=== PATIENT | male | born 1930 | race Asian ===

== ENCOUNTER 2017-08-24 09:44 | Inpatient (IN) | payer OTHER ==
[~2017-08-24] VITALS: Ht 175.3 cm; Wt 64.0 kg
[~2017-08-24 09:44] MED LIST: CLOP75TA PO; GLU500 PO; LEVO0.0523 PO; TAMS0.4C96 PO
[2017-08-24 10:00] VITALS: BP 70/38
--- NOTE | 2017-08-24 10:15 | NUR ---
PT. BIB BY SON W/ C/O OF DIZZINESS THIS MORNING WHILE HAVING BREAKFAST. SON STATES" I WAS GIVING HIM BREAKFAST AND HE THREW IT UP AND HE WAS DIZZY". NO C/O OF COUGH OR DIAHRRHEA AT THIS TIME. PT. HAS 2/10 PAIN. LS: CLEAR BILATERALLY, RR EVEN AND UNLABORED. E.R DOCTOR NOTIFIED. WILL CONTINUE TO MONITOR
[2017-08-24] MEDS ORDERED: NACL 0.9% 1,000 ML IV SCH (10:26)
--- NOTE | 2017-08-24 10:42 | NUR ---
# 16 FR Spears catheter with 10 ml utilizing sterile technique. Immediate return of 10 ml yellowish urine noted. Bedside drainage bag placed below level of bladder. Urine sample collected and sent to lab. Pt tolerated procedure well.
--- NOTE | 2017-08-24 10:55 | NUR ---
HEAVY ARTIFACT NOTED ON EKG---ST ELEVATION SR MD NOTIFIED PT DOES NOT TO BE TREMULOUS BUT RUE CONTRACTION. TROP LEVEL COLLECTED
--- NOTE | 2017-08-24 11:15 | NUR ---
X RAY AT BEDSIDE
--- NOTE | 2017-08-24 11:15 | NUR ---
LAB AT BEDSIDE
[2017-08-24 11:28] LABS: HEMATOCRIT 36.1 % (36-52); HEMOGLOBIN 11.9 g/dL (12.0-18.0); LYMPHOCYTES # (AUTO) 0.4 K/uL (2.0-11.5); LYMPHOCYTES % (AUTO) 3.4 % (20.5-51.1); MEAN CORPUSCULAR HEMOGLOBIN 33 pg (27-31); MEAN CORPUSCULAR HGB CONC 33 g/dL (33-37); MEAN CORPUSCULAR VOLUME 99.4 fL (80-94); MONOCYTES # (AUTO) 0.7 K/uL (0.8-1.0); MONOCYTES % (AUTO) 6.4 % (1.7-9.3); NEUTROPHILS # (AUTO) 10.1 K/uL (1.8-7.7); NEUTROPHILS % (AUTO) 90.2 % (42.2-75.2); PLATELET COUNT (AUTO) 139 K/uL (140-450); RED BLOOD CELL COUNT(AUTO) 3.63 MIL/uL (4.20-6.10); RED CELL DISTRIBUTION WIDTH 13.2 % (11.6-13.7); WHITE BLOOD COUNT (AUTO) 11.2 K/uL (4.8-10.8)
[2017-08-24 11:42] LABS: ALBUMIN 2.7 g/dL (3.4-5.0); ANION GAP 16.2 (8-16); ASPARTATE AMINOTRANSFERASE 120 U/L (15-37); CARBON DIOXIDE 21.2 mmol/L (21-32); CHLORIDE 102 mmol/L (98-107); CREATININE 1.6 mg/dL (0.7-1.3); GLUCOSE 146 mg/dL (74-106); POTASSIUM 5.4 mmol/L (3.5-5.1); SODIUM SERUM 134 mmol/L (136-145); TOTAL BILIRUBIN 0.7 mg/dL (0.0-1.0); UREA NITROGEN, BLOOD 35 mg/dL (7-18)
[2017-08-24 12:12] LABS: APPEARANCE,URINE CLEAR (CLEAR); BILIRUBIN,URINE NEGATIVE (NEGATIVE); BLOOD, URINE 1+ (NEGATIVE); COLOR,URINE YELLOW (YELLOW); LEUKOCYTE ESTERASE ,URINE 3+ (NEGATIVE); NITRITE, URINE POSITIVE (NEGATIVE); PH,URINE 5.5 (5.0-9.0); UGLUCOSE NEGATIVE (NEGATIVE)
[2017-08-24] MEDS ORDERED: NACL 0.9% 1,000 ML IV ONE (12:15)
[2017-08-24 12:24] LABS: RBC,URINE 0-5 (RARE) /HPF (0-5)
[2017-08-24 12:25] LABS: WBC,URINE 20-60 /HPF (0-5)
--- NOTE | 2017-08-24 12:35 | NUR ---
PT. SLEEPING, RR EVEN AND UNLABORED, BED IN LOWEST POSITION, BEDRAILS X 2. SON AT BEDSIDE. WILL CONTINUE TO MONITOR.
[2017-08-24] MEDS ORDERED: cefTRIAXone 1,000 MG VIAL ONE (13:07)
[2017-08-24] MEDS ORDERED: NACL 0.9% 500 ML IV ONE (13:30)
[2017-08-24] MEDS ORDERED: ACETAMINOPHEN 325 MG TAB PO PRN (14:10)
[2017-08-24] MEDS ORDERED: HYDROcodone/APAP 7.5/325 MG 1 TAB PO PRN (14:10)
[2017-08-24] MEDS ORDERED: ONDANSETRON 4 MG/2 ML VIAL IM/IVP PRN (14:10)
[2017-08-24] MEDS ORDERED: DOCUSATE SODIUM 100 MG GELCAP PO PRN (14:10)
--- NOTE | 2017-08-24 14:19 | NUR ---
LAB AT BEDSIDE
[2017-08-24] MEDS ORDERED: SODIUM POLYSTYRENE 15 GM/60 ML UDBTL PO SCH (14:50)
[2017-08-24] MEDS ORDERED: MECLIZINE 25 MG TAB PO ONE (15:00)
[2017-08-24] MEDS ORDERED: MECLIZINE 25 MG TAB PO PRN (15:10)
--- NOTE | 2017-08-24 15:14 | NUR ---
PT TAKEN TO CT VIA GURIATLIA ACCOMPANIED BY [employer].
--- NOTE | 2017-08-24 15:23 | NUR ---
PT RETURNED FROM CT VIA RNEY ACCOMPANIED BY [employer].
[2017-08-24 15:40] LABS: CHOL/HDL RATIO 2.4 (1-4.5); FREE T4 (FREE THYROXINE) 1.02 ng/dL (0.76-1.46); MAGNESIUM 1.9 mg/dL (1.8-2.4); PHOSPHORUS 3.6 mg/dL (2.5-4.9); THYROID STIMULATING HORMONE 1.61 uIU/mL (0.34-3.74)
--- NOTE | 2017-08-24 15:40 | NUR ---
Patient will be admitted to care of DR. FONSECA . Admited to TELE FLOOR Will go to room 108B. Belongings list completed. Report to [facility] .
[2017-08-24] MEDS ORDERED: DEXTROSE 50% 50 ML SYR IVP PRN (16:35)
--- NOTE | 2017-08-24 16:40 | NUR ---
PATIENT ARRIVED AT THE UNIT. RECEIVED BEDSIDE REPORT FROM ER NURSE. SON AT BEDSIDE. NO S/SX OF DISTRESS ON ROOM AIR. ALERT AND ORIENTEDX2. SKIN IS INTACT. IV ON LAC 20G. IV IS CLEAN, DRY AND INTACT. CHICAS INSERTED IN ER. CHICAS IS INTACT. AIRLINE TRANSPORT PILOT IN PLACE. FALL PRECAUTIONS IN PLACE. NPO UNTIL SWALLOW EVAL DONE. BED IN LOW POSITION. CALL LIGHT WITHIN REACH. WILL CONTINUE TO MONITOR PATIENT.
[2017-08-24] MEDS: NACL 0.9% 1,000 ML IV SCH ×2 (16:46→23:43)
[2017-08-24] MEDS: BLOOD GLUCOSE MONITORING 1 DEV DEV FS SCH (16:59)
--- NOTE | 2017-08-24 17:03 | NUR ---
HELD PRN INSULIN DUE TO NPO FOR SWALLOW EVALUATION.
--- NOTE | 2017-08-24 19:30 | NUR ---
GAVE BEDSIDE REPORT TO NETWORK SOLUTIONS ARCHITECT NURSE. PATIENT ENDORSED IN STABLE CONDITION.
--- NOTE | 2017-08-24 19:35 | NUR ---
RECEIVED REPORT FROM DAY SHIFT RN, PATIENT RESTING IN BED, SON IS AT BEDSIDE, NO S/S OF DISTRESS NOTED, PATIENT IS NON-VERBAL, IV PATENT AND INTACT, IV FLUID INFUSING WELL. RIGHT ARM CONTRACTED. CHICAS IN PLACE, DRAINING URINE BY GRAVITY. CALL LIGHT WITHIN REACH, SAFETY MEASURE ENSURED, WILL CONTINUE TO MONITOR.
[2017-08-24 20:00] VITALS: BP 91/50
[2017-08-24] MEDS ORDERED: CLOPIDOGREL 75 MG TAB PO SCH (20:05)
[2017-08-24] MEDS ORDERED: ASPIRIN 325 MG TAB ONE (20:19)
[2017-08-24] MEDS ORDERED: CLOPIDOGREL 75 MG TAB ONE (20:20)
[2017-08-24] MEDS ORDERED: ASPIRIN 325 MG TABEC PO ONE (20:29)
[2017-08-24] MEDS: TAMSULOSIN 0.4 MG CAP PO SCH (20:35)
--- NOTE | 2017-08-24 20:40 | NUR ---
DR. ELIZABETH ORDERED ASPIRIN ENTERIC COATED TABLET 325 MG AND PLAVIX 75MG PO, MEDICATIONS ADMINISTERED ORDERED, PATIENT TOLERATED WELL. BLOOD SUGAR 102, GLUCOPHAGE HELD DUE TO NPO. CALL LIGHT WITHIN REACH, SAFETY MEASURE ENSURED, WILL CONTINUE TO MONITOR.
[2017-08-24] MEDS ORDERED: metFORMIN 500 MG TAB PO SCH (21:00)
[2017-08-24] MEDS: ASPIRIN 325 MG TABEC PO SCH (21:03)
--- NOTE | 2017-08-24 23:55 | NUR ---
VITAL SIGNS STABLE, NO S/S OF DISTRESS NOTED, RESPIRATION EVEN AND UNLABORED, ON ROOM AIR. CALL LIGHT WITHIN REACH, SAFETY MEASURE ENSURED, WILL CONTINUE TO MONITOR.
[2017-08-25] VITALS: BP 104/59
--- NOTE | 2017-08-25 02:53 | NUR ---
PATIENT IS SLEEPING, NO S/S OF DISTRESS NOTED, RESPIRATION EVEN AND UNLABORED, CALL LIGHT WITHIN REACH, SAFETY MEASURE ENSURED, WILL CONTINUE TO MONITOR.
[2017-08-25 04:00] VITALS: BP 99/58
[2017-08-25] MEDS: LEVOTHYROXINE 0.05 MG TAB PO SCH (05:46)
--- NOTE | 2017-08-25 05:50 | NUR ---
BLOOD SUGAR 58 AND 63, MADE DR. ELIZABETH AWARE. ORDERED ME TO GIVE APPLE JUICE FOR NOW. PATIENT DRANK ONE BOX OF APPLE JUICE, TOLERATED WELL. WILL CONTINUE TO MONITOR.
--- NOTE | 2017-08-25 06:31 | NUR ---
BLOOD SUGAR 89. PATIENT RESTING IN BED, NO S/S OF DISTRESS NOTED, WILL CONTINUE TO MONITOR.
[2017-08-25] MEDS: BLOOD GLUCOSE MONITORING 1 DEV DEV FS SCH ×4 (06:32→21:54)
--- NOTE | 2017-08-25 07:17 | NUR ---
ENDORSED PLAN OF CARE TO DAY SHIFT RN. PATIENT IS IN STABLE CONDITION.
[2017-08-25 07:18] LABS: BASOPHILS % (AUTO) 0.2 % (0.0-2.0); EOSINOPHILS # (AUTO) 0.4 K/uL (0-0.4); EOSINOPHILS % (AUTO) 3.7 % (0.0-4.0); HEMATOCRIT 31.4 % (36-52); HEMOGLOBIN 10.8 g/dL (12.0-18.0); LYMPHOCYTES # (AUTO) 0.7 K/uL (2.0-11.5); LYMPHOCYTES % (AUTO) 6.7 % (20.5-51.1); MEAN CORPUSCULAR HEMOGLOBIN 34 pg (27-31); MEAN CORPUSCULAR HGB CONC 34 g/dL (33-37); MEAN CORPUSCULAR VOLUME 98.4 fL (80-94); MONOCYTES # (AUTO) 0.5 K/uL (0.8-1.0); MONOCYTES % (AUTO) 5.3 % (1.7-9.3); NEUTROPHILS # (AUTO) 8.3 K/uL (1.8-7.7); NEUTROPHILS % (AUTO) 84.1 % (42.2-75.2); PLATELET COUNT (AUTO) 121 K/uL (140-450); RED BLOOD CELL COUNT(AUTO) 3.19 MIL/uL (4.20-6.10); RED CELL DISTRIBUTION WIDTH 13.4 % (11.6-13.7); WHITE BLOOD COUNT (AUTO) 9.9 K/uL (4.8-10.8)
--- NOTE | 2017-08-25 07:20 | NUR ---
RECEIVED REPORT FROM DIRECTOR EMERGENCY DEPARTMENT NURSE. PATIENT SLEEPING AT THIS TIME. EASILY AROUSABLE. NO S/SX OF DISTRESS ON ROOM AIR. SKIN IS INTACT. IV IN L AC 20G INFUSING NS AT 100ML. IV IS INTACT. TOW MOTOR OPERATOR IN PLACE. FALL RISK PROTOCOL IN PLACE. CHICAS IN PLACE. BED IN LOW POSITION. WILL CONTINUE TO MONITOR PATIENT.
[2017-08-25 07:27] LABS: ANION GAP 13.3 (8-16); CARBON DIOXIDE 20.8 mmol/L (21-32); CHLORIDE 107 mmol/L (98-107); CREATININE 1.3 mg/dL (0.7-1.3); GLUCOSE 71 mg/dL (74-106); POTASSIUM 4.1 mmol/L (3.5-5.1); SODIUM SERUM 137 mmol/L (136-145); UREA NITROGEN, BLOOD 28 mg/dL (7-18)
[2017-08-25 07:39] LABS: MAGNESIUM 1.8 mg/dL (1.8-2.4); PHOSPHORUS 2.7 mg/dL (2.5-4.9)
[2017-08-25 08:00] VITALS: BP 104/49
[2017-08-25] MEDS ORDERED: NACL 0.9% 1,000 ML IV SCH (08:05)
--- NOTE | 2017-08-25 08:19 | NUR ---
ADMINISTERING 1L NS BOLUS ORDERED BY THE DOCTOR. PATIENT TOLERATING BOLUS WELL. THERE IS AN IMPROVEMENT IN B/P. BED IN LOW POSITION. WILL CONTINUE TO MONITOR PATIENT.
[2017-08-25 08:23] LABS: FOLIC ACID 4.3 ng/mL (>3.0)
[2017-08-25] MEDS ORDERED: PHARMACY COMMENTS MC SCH (09:00)
[2017-08-25] MEDS ORDERED: ASPIRIN 81 MG TAB.CHEW PO ONE (09:00)
[2017-08-25 09:09] LABS: T4 (THYROXINE) 6.2 ug/dL (4.5-12.0)
[2017-08-25] MEDS: CLOPIDOGREL 75 MG TAB PO SCH (09:28)
[2017-08-25] MEDS: ASPIRIN 325 MG TABEC PO SCH (09:28)
[2017-08-25] MEDS: LACTOBACILLUS RHAMNOSUS GG 1 EACH CAP PO SCH (09:28)
[2017-08-25] MEDS: ATORVASTATIN 20 MG TAB PO SCH (09:29)
--- NOTE | 2017-08-25 09:30 | NUR ---
SON AT BEDSIDE. ADMINISTERED MORNING MEDS WITH THICKENER. PATIENT TOLERATED MEDS WELL, NO COMPLAINTS AT THIS TIME. PLACED SCDS ON PATIENT. BED IN LOW POSITION, WILL CONTINUE TO MONITOR PATIENT.
[2017-08-25] MEDS: NACL 0.9% 1,000 ML IV SCH ×2 (10:10→22:00)
--- NOTE | 2017-08-25 11:27 | NUR ---
PATIENT CURRENTLY SLEEPING WITH NO S/SX OF DISTRESS. BED IN LOW POSITION. WILL CONTINUE TO MONITOR PATIENT.
--- NOTE | 2017-08-25 11:43 | NUR ---
CM NOTE INITIAL REVIEW DONE
[2017-08-25 12:00] VITALS: BP 124/69
--- NOTE | 2017-08-25 13:24 | NUR ---
SPEECH THERAPIST AT BEDSIDE DOING SWALLOW EVAL. PATIENT TOLERATING WELL. WILL RECHECK BLOOD GLUCOSE AFTER THE EXAM. WILL CONTINUE TO MONITOR PATIENT.
--- NOTE | 2017-08-25 13:43 | NUR ---
COLLECTION CARD CLERK note (Bedside swallow evaluation completed) [id number]. Bedside swallow evaluation completed, please see report for details. COLLECTION CARD CLERK provided pt with education regarding purpose of evaluation. Unclear how much pt benefitted from education provided. No family present at this time. Recommend: 1) mechanical soft textures 2) thin liquids 3) aspiration precautions (including pt must be fully awake/alert/upright for any PO intakes, alternate small/slow bites and sips, stop giving PO if pt becomes less alert/SOB/coughing) 4) feeding assistance 5) no further COLLECTION CARD CLERK intervention indicated at this time. Physician may reorder if further concerns arise, as appropriate. G-codes: [id number] [facility] NOMS level 4.
--- NOTE | 2017-08-25 13:45 | NUR ---
PATIENT GLUCOSE LEVEL UP TO 84 AFTER SWALLOW EVALUATION. WILL CONTINUE TO MONITOR PATIENT.
[2017-08-25 14:10] LABS: APPEARANCE,URINE CLEAR (CLEAR); BILIRUBIN,URINE NEGATIVE (NEGATIVE); BLOOD, URINE 3+ (NEGATIVE); LEUKOCYTE ESTERASE ,URINE 2+ (NEGATIVE); NITRITE, URINE NEGATIVE (NEGATIVE); UGLUCOSE NEGATIVE (NEGATIVE)
[2017-08-25 14:17] LABS: COLOR,URINE STRAW (YELLOW)
[2017-08-25 14:22] LABS: WBC,URINE 6-15 (FEW) /HPF (0-5)
[2017-08-25 14:23] LABS: RBC,URINE 20-50 /HPF (0-5)
--- NOTE | 2017-08-25 14:51 | NUR ---
PATIENT IS SLEEPING. NO SIGNS OF DISTRESS. BED IN LOW POSITION. WILL CONTINUE TO MONITOR PATIENT.
--- NOTE | 2017-08-25 14:59 | NUR ---
PATIENT HAS BEEN SCREENED AND CATEGORIZED HIGH NUTRITION RISK. PATIENT WILL BE SEEN WITHIN 1-2 DAYS OF ADMISSION. 08/25/17 - 08/26/[address]
[2017-08-25 16:00] VITALS: BP 98/70
--- NOTE | 2017-08-25 16:30 | NUR ---
PATIENT IS SLEEPING NO SIGNS OF DISTRESS AT THIS TIME. BED IN LOW POSITION. WILL CONTINUE TO MONITOR PATIENT.
--- NOTE | 2017-08-25 17:50 | NUR ---
NEW IV ON L FOREARM 22G. IV IS CLEAN, DRY AND INTACT. PATIENT TOLERATED WELL. SON AT BEDSIDE FEEDING PATIENT. BED IN LOW POSITION. CALL LIGHT WITHIN REACH. WILL CONTINUE TO MONITOR PATIENT.
--- NOTE | 2017-08-25 19:44 | NUR ---
GAVE NET WPF DEVELOPER NURSE REPORT. PATIENT IS IN STABLE CONDITION.
--- NOTE | 2017-08-25 19:45 | NUR ---
RECEIVED PT BEKA SONT AOX1 FOLLOW SIMPLAE COMMANDS RT SIDE BODYCONTRACTED IV ON LEFT FA INFUSING WELL ON TELEMETRY SR , FOLEYCATHDRAINING WELL YELLOW URINE, REPOSITIONED INITIAL ASSESSMENT DONE RELATIVES AT BED SIDE
[2017-08-25 20:00] VITALS: BP 89/50
--- NOTE | 2017-08-25 21:30 | NUR ---
BLOOD SUGAR TEST 153 COVERAGE WITH 2UNITS HUMALOG SUBQ FOLLOWING PROTOCOL PT REMAIN STBLE AT THIS;TIME NOT SIGN OF PAIN NOTED
[2017-08-25] MEDS: INSULIN LISPRO SLIDING SCALE 100 UNITS/ML VIAL SUBQ PRN (21:50)
[2017-08-25] MEDS: TAMSULOSIN 0.4 MG CAP PO SCH (21:55)
[2017-08-26] VITALS: BP 100/68
--- NOTE | 2017-08-26 | NUR ---
ON TELE SR NOT DISTRESS NOTED ON TELEMETRY SR BBB REPOSITIONED Q2H
--- NOTE | 2017-08-26 02:00 | NUR ---
REPOSITIONED Q2H LINEN CHANGED ON TELEMETRY SR NOT DISTRESS NOTED
[2017-08-26 04:00] VITALS: BP 116/58
--- NOTE | 2017-08-26 04:00 | NUR ---
SPONGE BATHG GIVEN, LINEN CHANGED REPOSITIONED Q2H IV ON LEFT FA INFUSING WELL NOT DISTRESS NOTED CHICAS CATH DRAINING WELL YELLOW URINE
[2017-08-26] MEDS: NACL 0.9% 1,000 ML IV SCH ×4 (06:10→22:33)
[2017-08-26] MEDS: LEVOTHYROXINE 0.05 MG TAB PO SCH (06:27)
[2017-08-26] MEDS: BLOOD GLUCOSE MONITORING 1 DEV DEV FS SCH ×4 (06:28→20:50)
--- NOTE | 2017-08-26 07:00 | NUR ---
BLOOD SUGAR TEST 72 NOT DISTRESS NOTED IV ON LEFT FA INFUSING WELL ON TELMETRY SR FOLEYCATH DRAINING WELL YELLOW URINE
--- NOTE | 2017-08-26 07:30 | NUR ---
RECEIVED REPORT FROM SENIOR DENTIST NURSE. PATIENT LYING DOWN IN BED COMFORTABLY. NO DISTRESS NOTED. FLACC 0. RESPIRATIONS EVEN, UNLABORED, ON ROOM AIR. AAOX1, LANGUAGE BARRIER, ABLE TO COMMUNICATE YES OR NO, CALM, COOPERATIVE, SKIN COLOR APPROPRIATE TO ETHNICITY, WARM TO TOUCH. SKIN IS INTACT. LUNGS CTA ON ALL LOBES. ABDOMEN SOFT, NON-DISTENDED. IV SITE INTACT, PATENT, AND INFUSING IVF PER ORDERS. CHICAS CATHETER IN PLACE, DRAINING CLEAR, YELLOW URINE. REVIEWED PLAN OF CARE WITH PATIENT. REINFORCEMENT NEEDED. SAFETY MEASURES IN PLACE, CALL LIGHT WITHIN REACH, FALL PREVENTIONS IN PLACE. WILL CONTINUE TO MONITOR.
[2017-08-26 08:00] VITALS: BP 103/59
[2017-08-26 08:42] LABS: BASOPHILS % (AUTO) 0.3 % (0.0-2.0); EOSINOPHILS # (AUTO) 0.4 K/uL (0-0.4); EOSINOPHILS % (AUTO) 6.3 % (0.0-4.0); HEMATOCRIT 33.3 % (36-52); HEMOGLOBIN 11.3 g/dL (12.0-18.0); LYMPHOCYTES # (AUTO) 0.8 K/uL (2.0-11.5); MEAN CORPUSCULAR HEMOGLOBIN 34 pg (27-31); MEAN CORPUSCULAR HGB CONC 34 g/dL (33-37); MEAN CORPUSCULAR VOLUME 99.9 fL (80-94); MONOCYTES # (AUTO) 0.6 K/uL (0.8-1.0); MONOCYTES % (AUTO) 8.1 % (1.7-9.3); NEUTROPHILS # (AUTO) 5.1 K/uL (1.8-7.7); NEUTROPHILS % (AUTO) 74.3 % (42.2-75.2); PLATELET COUNT (AUTO) 140 K/uL (140-450); RED BLOOD CELL COUNT(AUTO) 3.33 MIL/uL (4.20-6.10); RED CELL DISTRIBUTION WIDTH 13.6 % (11.6-13.7); WHITE BLOOD COUNT (AUTO) 6.9 K/uL (4.8-10.8)
[2017-08-26] MEDS ORDERED: ASPIRIN 81 MG TAB.CHEW PO SCH (09:05)
--- NOTE | 2017-08-26 09:09 | NUR ---
PATIENT LYING IN BED COMFORTABLY. FAMILY MEMBER AT BEDSIDE. NO DISTRESS NOTED. FLACC 0. SCHEDULED MEDICATIONS DUE GIVEN. SAFETY MEASURES IN PLACE, CALL LIGHT WITHIN REACH. WILL CONTINUE TO MONITOR.
[2017-08-26 09:21] LABS: ANION GAP 12.8 (8-16); CARBON DIOXIDE 19.2 mmol/L (21-32); CHLORIDE 110 mmol/L (98-107); CREATININE 1.3 mg/dL (0.7-1.3); GLUCOSE 78 mg/dL (74-106); SODIUM SERUM 138 mmol/L (136-145); UREA NITROGEN, BLOOD 21 mg/dL (7-18)
[2017-08-26] MEDS: CLOPIDOGREL 75 MG TAB PO SCH (09:27)
[2017-08-26] MEDS: ATORVASTATIN 20 MG TAB PO SCH (09:28)
[2017-08-26] MEDS: LACTOBACILLUS RHAMNOSUS GG 1 EACH CAP PO SCH (09:28)
[2017-08-26 09:29] LABS: MAGNESIUM 1.8 mg/dL (1.8-2.4); PHOSPHORUS 2.4 mg/dL (2.5-4.9)
[2017-08-26] MEDS: FERROUS GLUCONATE 324 MG TAB PO SCH (09:31)
--- NOTE | 2017-08-26 10:48 | NUR ---
PATIENT LYING IN BED SLEEPING, AROUSABLE BY VOICE. NO DISTRESS NOTED. FLACC 0. REPLACED IVF BAG PER ORDERS. CONDITION UNCHANGED. WILL CONTINUE TO MONITOR
--- NOTE | 2017-08-26 11:06 | NUR ---
08/26/17 RD INITIAL ASSESSMENT COMPLETED PLEASE REFER TO NUTRITION ASSESSMENT UNDER CARE ACTIVITY FOR ESTIMATED NUTRITIONAL NEEDS. RD RECOMMENDATIONS: 1. RECOMMEND MECHANICAL SOFT, THIN LIQUIDS PER ST RECOMMENDATIONS FROM BEDSIDE SWALLOW EVALUATION. -NOTE PT IS TOLERATING PUREE TEXTURE WELL PER RN. PT IS EATING WELL WITH PO INTAKE OF 75% AND 80% FOR TWO MEALS. 2. RD WILL F/U 3-5 DAYS; MODERATE RISK. STEPHANIE AVERY, RD
[2017-08-26 12:00] VITALS: BP 128/53
[2017-08-26] MEDS ORDERED: FERRIC GLUCONATE 125 MG in NACL 0.9% 100 ML IV SCH (12:30)
--- NOTE | 2017-08-26 13:04 | NUR ---
PATIENT LYING DOWN IN BED. NO DISTRESS NOTED. FLACC 0. TOOLING MECHANIC ABLE TO FEED PATIENT. PATIENT TOLERATED LUNCH WELL. CONDITION UNCHANGED. SAFETY MEASURES IN PLACE, CALL LIGHT WITHIN REACH. WILL CONTINUE TO MONITOR.
[2017-08-26] MEDS: SODIUM PHOS / POTASSIUM PHOS 1 PKT PDR PO SCH ×2 (13:25→17:05)
--- NOTE | 2017-08-26 13:32 | NUR ---
PATIENT LYING DOWN IN BED COMFORTABLY. NO DISTRESS NOTED. DENIES ANY PAIN. FLACC 0. SCHEDULED MEDICATIONS DUE GIVEN. SAFETY MEASURES IN PLACE, CALL LIGHT WITHIN REACH. WILL CONTINUE TO MONITOR.
--- NOTE | 2017-08-26 15:00 | NUR ---
PATIENT LYING IN BED SLEEPING, AROUSABLE BY VOICE. NO DISTRESS NOTED. FLACC 0. CONDITION UNCHANGED. IV SITE INTACT, PATENT, AND INFUSING IVF PER ORDERS. SAFETY MEASURES IN PLACE, CALL LIGHT WITHIN REACH. WILL CONTINUE TO MONITOR.
[2017-08-26 16:00] VITALS: BP 96/52
[2017-08-26] MEDS: INSULIN LISPRO SLIDING SCALE 100 UNITS/ML VIAL SUBQ PRN (16:21)
--- NOTE | 2017-08-26 17:15 | NUR ---
PATIENT LYING DOWN IN BED SLEEPING, AROUSABLE BY VOICE. NO DISTRESS NOTED. FLACC 0. CONDITION UNCHANGED. WILL CONTINUE TO MONITOR.
--- NOTE | 2017-08-26 19:25 | NUR ---
GAVE REPORT TO BINDING NICKER NURSE FOR CONTINUITY OF CARE. PATIENT IN STABLE CONDITION.
--- NOTE | 2017-08-26 19:25 | NUR ---
RECEIVED PATIENT LYING ASLEEP ON BED.FALL PRECAUTION IMPLEMENTED. CALL LIGHTS WITHIN REACH. NO S/S DISTRESS AT THIS TIME. WILL CONTINUE TO MONITOR.
[2017-08-26 20:00] VITALS: BP 93/50
[2017-08-26] MEDS: TAMSULOSIN 0.4 MG CAP PO SCH (20:31)
--- NOTE | 2017-08-26 21:40 | NUR ---
SEEN PATIENT ASLEEP ON BED BUT EASILY AROUSABLE. FALL PRECAUTION IMPLEMENTED. CALL LIGHT WITHIN REACH. NO S/S OF DISTRESS NOTED AT THIS TIME. WILL CONTINUE TO MONITOR
[2017-08-27] VITALS: BP 128/66
--- NOTE | 2017-08-27 02:46 | NUR ---
SEEN PATIENT ASLEEP ON BED. FALL PRECAUTION IMPLEMENTED. CALL LIGHT WITHIN REACH. WILL CONTINUE TO MONITOR.
[2017-08-27 04:00] VITALS: BP 126/63
[2017-08-27] MEDS: BLOOD GLUCOSE MONITORING 1 DEV DEV FS SCH ×3 (05:48→16:30)
--- NOTE | 2017-08-27 06:05 | NUR ---
NOTIFIED RESIDENT ABOUT ELEVATED BUN LEVEL OF 21. NO CHANGES MADE.
[2017-08-27] MEDS: LEVOTHYROXINE 0.05 MG TAB PO SCH (06:17)
--- NOTE | 2017-08-27 07:20 | NUR ---
ENDORSED PATIENT TO AM SHIFT NURSE FOR CONTINUITY OF CARE. PATIENT IN STABLE CONDITION
--- NOTE | 2017-08-27 07:21 | NUR ---
RECEIVED REPORT FROM PM NURSE AT BEDSIDE. PT LAYING DOWN IN BED SLEEPING, AROPUSABLE TO VOICE, NO DISTRESS NOTED. FLACC 0. AOX1.CALM, COOPERATIVE, SKIN COLOR APPROPRIATE TO ETHNICITY, WARM TO TOUCH. SKIN INTACT. IV SITE INTACT , PATIENT. INFUSING IVF ORDERED. MITTENS PLACE ON LFT HAND DUE TO PULLING OF TELE MONITOR. REVIEWD PLAN OF CARE WITH PT. UNABLE TO COMPREHEND. SAFTEY MEASURES IN PLACE. WILL CONTINUE TO MONITOR.
[2017-08-27 08:00] VITALS: BP 120/67
[2017-08-27 08:22] LABS: BASOPHILS # (AUTO) 0.1 K/uL (0.00-0.22); EOSINOPHILS # (AUTO) 0.4 K/uL (0-0.4); HEMOGLOBIN 10.7 g/dL (12.0-18.0); LYMPHOCYTES # (AUTO) 0.7 K/uL (2.0-11.5); MONOCYTES # (AUTO) 0.5 K/uL (0.8-1.0); NEUTROPHILS # (AUTO) 4.4 K/uL (1.8-7.7); RED CELL DISTRIBUTION WIDTH 12.8 % (11.6-13.7); WHITE BLOOD COUNT (AUTO) 6.1 K/uL (4.8-10.8)
[2017-08-27 08:44] LABS: ANION GAP 12.5 (8-16); CARBON DIOXIDE 20.2 mmol/L (21-32); CHLORIDE 111 mmol/L (98-107); CREATININE 1.2 mg/dL (0.7-1.3); GLUCOSE 78 mg/dL (74-106); POTASSIUM 3.7 mmol/L (3.5-5.1); SODIUM SERUM 140 mmol/L (136-145); UREA NITROGEN, BLOOD 19 mg/dL (7-18)
[2017-08-27] MEDS: LACTOBACILLUS RHAMNOSUS GG 1 EACH CAP PO SCH (08:53)
[2017-08-27] MEDS: SODIUM PHOS / POTASSIUM PHOS 1 PKT PDR PO SCH ×2 (08:53→13:39)
[2017-08-27] MEDS: CLOPIDOGREL 75 MG TAB PO SCH (08:54)
[2017-08-27] MEDS: ATORVASTATIN 20 MG TAB PO SCH (08:54)
[2017-08-27] MEDS: FERROUS GLUCONATE 324 MG TAB PO SCH (08:56)
[2017-08-27] MEDS: NACL 0.9% 1,000 ML IV SCH (08:57)
[2017-08-27 08:59] LABS: BASOPHILS % (AUTO) 0.9 % (0.0-2.0); HEMATOCRIT 32.7 % (36-52); MEAN CORPUSCULAR HEMOGLOBIN 33 pg (27-31); MEAN CORPUSCULAR HGB CONC 33 g/dL (33-37); MEAN CORPUSCULAR VOLUME 99.7 fL (80-94); MONOCYTES % (AUTO) 8.3 % (1.7-9.3); RED BLOOD CELL COUNT(AUTO) 3.28 MIL/uL (4.20-6.10)
[2017-08-27 09:00] LABS: LYMPHOCYTES % (AUTO) 10.8 % (20.5-51.1); PLATELET COUNT (AUTO) 140 K/uL (140-450)
[2017-08-27] MEDS ORDERED: ASPIRIN 81 MG TAB.CHEW PO SCH (09:00)
[2017-08-27 09:21] LABS: MAGNESIUM 1.5 mg/dL (1.8-2.4); PHOSPHORUS 2.9 mg/dL (2.5-4.9)
--- NOTE | 2017-08-27 09:28 | NUR ---
SCHEDULED MEDICATION DUE ADMINISTERED.PT TOLERATED WELL. WILL CONTINUE TO MONITOR.
[2017-08-27] MEDS ORDERED: MAG SULF 2000 MG/WATER PREMIX 100 ML IV SCH (10:00)
[2017-08-27 12:00] VITALS: BP 113/59
--- NOTE | 2017-08-27 12:00 | NUR ---
PATIENT SITTING IN BED WITH LUNCH TRAY IN FRONT. LOGISTICS PROGRAM MANAGER ASSISTING PATIENT WITH FEEDING. SCHEDULED MEDICATIONS DUE GIVEN. WILL CONTINUE TO MONITOR.
--- NOTE | 2017-08-27 14:30 | NUR ---
PATIENT LYING IN BED COMFORTABLY. NO DISTRESS NOTED. FLACC 0. CONDITION UNCHANGED. WILL CONTINUE TO MONITOR.
[2017-08-27] MEDS ORDERED: ATOR20TA40 PO (14:39)
[2017-08-27] MEDS ORDERED: FERR324T11 PO (14:39)
[2017-08-27] MEDS ORDERED: LEVO750T2 PO (14:39)
[2017-08-27] MEDS ORDERED: LACT10CA PO (14:39)
[2017-08-27 16:00] VITALS: BP 95/52
--- NOTE | 2017-08-27 17:00 | NUR ---
PATIENT'S SON AT BEDSIDE. DISCHARGE INSTRUCTIONS PROVIDED TO SON IN PREFERRED LANGUAGE OF JAPANESE. FOLLOW-UP VISIT WITH PCP, NEW/CHANGED MEDICATION REGIMEN, AND DIET REGIMEN TO CONTINUE AT HOME PROVIDED. ANSWERED ALL OF SON'S QUESTIONS REGARDING DISCHARGE. ALL BELONGINGS AND PRESCRIPTIONS WITH PATIENT. ID BANDS REMOVED, IV SITE REMOVED WITH MINIMAL BLOOD AND LUMEN COMPLETELY INTACT. CHICAS CATHETER REMOVED PER ORDERS. AWAITING FOR SON TO GO HOME AND COME BACK WITH A WHEELCHAIR. PATIENT ALREADY DRESSED AND READY TO GO HOME. WILL CONTINUE TO MONITOR.
--- NOTE | 2017-08-27 17:45 | NUR ---
SON IS BACK FROM HOME WITH WHEELCHAIR. SON ASSISTED PATIENT FROM BED TO WHEELCHAIR. ESCORTED SON DOWN TO LOBBY VIA WHEELCHAIR. SON ASSISTED PATIENT FROM WHEELCHAIR TO CAR. PATIENT DISCHARGED AT THIS TIME TO HOME VIA PRIVATE VEHICLE IN STABLE CONDITION.
== END 2017-08-27 17:45 | disposition home or self-care (01) | DRG 871 ==
LOC: MED 09:44 → MTU 14:15
PROVIDERS: ADMIT Family Medicine Sports Medicine; ATTEND Family Medicine Sports Medicine
DX: A41.9 Sepsis, unspecified organism (principal); N17.0 Acute kidney failure with tubular necrosis; E43 Unspecified severe protein-calorie malnutrition; E11.51 Type 2 diabetes mellitus with diabetic peripheral angiopathy without gangrene; E11.65 Type 2 diabetes mellitus with hyperglycemia; E83.39 Other disorders of phosphorus metabolism; K31.84 Gastroparesis; E87.5 Hyperkalemia; I48.0 Paroxysmal atrial fibrillation; E87.1 Hypo-osmolality and hyponatremia; N39.0 Urinary tract infection, site not specified; I69.351 Hemiplegia and hemiparesis following cerebral infarction affecting right dominant side; D64.9 Anemia, unspecified; G90.9 Disorder of the autonomic nervous system, unspecified; E03.9 Hypothyroidism, unspecified; N40.0 Benign prostatic hyperplasia without lower urinary tract symptoms; Z68.20 Body mass index [BMI] 20.0-20.9, adult; E83.51 Hypocalcemia; N28.1 Cyst of kidney, acquired; E11.43 Type 2 diabetes mellitus with diabetic autonomic (poly)neuropathy; I11.9 Hypertensive heart disease without heart failure; Z79.84 Long term (current) use of oral hypoglycemic drugs
CPT/HCPCS: 36415; 51702; 70450; 71045; 76700; 80048; 80053; 81001; 82150; 82550; 82553; 82607; 82728; 82746; 82948; 83036; 83540; 83605; 83690; 83735; 83874; 83880; 84100; 84436; 84439; 84443; 84479; 84484; 85025; 85045; 85610; 85730; 87040; 87077; 87081; 87086; 87186; 92526; 93005; 93880; 93925; 93970; 96365; 96367; 97799; 99285; J0696; J1815; J2916; J3475; J7030; J7060; Q0092

== ENCOUNTER 2017-09-03 10:11 | Emergency (ER) | payer OTHER ==
[~2017-09-03] VITALS: Ht 170.2 cm; Wt 52.2 kg
[~2017-09-03 10:11] MED LIST changes: +ATOR20TA40 PO; +FERR324T11 PO; +LACT10CA PO; +LEVO750T2 PO
[2017-09-03 10:15] VITALS: BP 91/48
--- NOTE | 2017-09-03 10:15 | NUR ---
87 YO MALE BIB EMS FROM HOME FOR VOMITING AND LETHARGY AWAKE AND ALERT ON ARRIVAL NON VERBAL.PT HAS RT HEMIPLEGIA. IV TO RIGHT HAND # 18 RUNNING 0.9 %NS AT WIDE OPEN RATE, DIAPER IN PLACE. PT UNABLE TO MOVE HIMSELF. TRANSFERRED PT TO BED 10 WITH HOB ELEVATED 30 DEGREES WITH LOW BED POSITION. MD MADE AWARE OF PT STATUS, WILL CONTINUE TO MONITOR.
[2017-09-03 10:41] LABS: BASOPHILS % (AUTO) 0.4 % (0.0-2.0); EOSINOPHILS # (AUTO) 0.4 K/uL (0-0.4); HEMATOCRIT 29.5 % (36-52); HEMOGLOBIN 9.9 g/dL (12.0-18.0); LYMPHOCYTES # (AUTO) 1.8 K/uL (2.0-11.5); LYMPHOCYTES % (AUTO) 26.9 % (20.5-51.1); MEAN CORPUSCULAR HEMOGLOBIN 33 pg (27-31); MEAN CORPUSCULAR HGB CONC 34 g/dL (33-37); MEAN CORPUSCULAR VOLUME 99.3 fL (80-94); MONOCYTES # (AUTO) 0.6 K/uL (0.8-1.0); MONOCYTES % (AUTO) 8.4 % (1.7-9.3); NEUTROPHILS # (AUTO) 3.8 K/uL (1.8-7.7); NEUTROPHILS % (AUTO) 58.3 % (42.2-75.2); PLATELET COUNT (AUTO) 161 K/uL (140-450); RED BLOOD CELL COUNT(AUTO) 2.97 MIL/uL (4.20-6.10); RED CELL DISTRIBUTION WIDTH 13.6 % (11.6-13.7); WHITE BLOOD COUNT (AUTO) 6.6 K/uL (4.8-10.8)
[2017-09-03 10:51] LABS: ANION GAP 11.1 (8-16); CARBON DIOXIDE 23.9 mmol/L (21-32); CHLORIDE 103 mmol/L (98-107); CREATININE 1.7 mg/dL (0.7-1.3); GLUCOSE 115 mg/dL (74-106); SODIUM SERUM 134 mmol/L (136-145); UREA NITROGEN, BLOOD 24 mg/dL (7-18)
[2017-09-03 10:58] LABS: ALBUMIN 2.4 g/dL (3.4-5.0); ASPARTATE AMINOTRANSFERASE 56 U/L (15-37); TOTAL BILIRUBIN 0.4 mg/dL (0.0-1.0)
[2017-09-03 11:40] VITALS: BP 107/58
--- NOTE | 2017-09-03 11:40 | NUR ---
Patient discharged with v/s stable. Written and verbal after care instructions given and explained. Patient alert, and PT'S SON verbalized understanding of instructions. Wheel Chair Assisted with by SON. All questions addressed prior to discharge. ID band removed. Patient advised to follow up with PMD. Rx of ZOFRAN given. Patient educated on indication of medication including possible reaction and side effects. Opportunity to ask questions provided and answered.
[2017-09-03 11:42] LABS: APPEARANCE,URINE CLEAR (CLEAR); BILIRUBIN,URINE NEGATIVE (NEGATIVE); BLOOD, URINE TRACE-I (NEGATIVE); COLOR,URINE YELLOW (YELLOW); LEUKOCYTE ESTERASE ,URINE NEGATIVE (NEGATIVE); NITRITE, URINE NEGATIVE (NEGATIVE); PH,URINE 6.5 (5.0-9.0); UGLUCOSE NEGATIVE (NEGATIVE)
[2017-09-03 11:56] LABS: RBC,URINE 0-5 (RARE) /HPF (0-5); WBC,URINE 0-5 (RARE) /HPF (0-5)
[2017-09-03 15:21] LABS: PROTHROMBIN TIME 10.1 secs (10.8-13.4)
== END 2017-09-03 11:40 | disposition home or self-care (01) ==
LOC: MED 10:11
DX: R11.10 Vomiting, unspecified (principal); E11.9 Type 2 diabetes mellitus without complications; I10 Essential (primary) hypertension; E07.9 Disorder of thyroid, unspecified; Z86.73 Personal history of transient ischemic attack (TIA), and cerebral infarction without residual deficits; Z79.899 Other long term (current) drug therapy; Z79.84 Long term (current) use of oral hypoglycemic drugs
CPT/HCPCS: 36415; 71045; 80053; 81001; 82550; 83605; 83880; 84484; 85025; 85610; 85730; 87040; 87086; 93005; 99285; C1758; Q0092

== ENCOUNTER 2018-02-04 17:54 | Inpatient (IN) | payer OTHER ==
[~2018-02-04] VITALS: Ht 175.3 cm; Wt 69.4 kg
[~2018-02-04 17:54] MED LIST changes: -LEVO750T2 PO
[2018-02-04 17:56] VITALS: BP 70/45
--- NOTE | 2018-02-04 18:01 | NUR ---
Patient transferred to bed 11 via wheelchair by nurse, accompanied by family.
--- NOTE | 2018-02-04 18:02 | NUR ---
87/ M BIB SON W/ C/O FEVER, DIARRHEA X 2 DAYS. HX RIGHT SIDE WEAKNESS S/P STROKE, NON-AMBULATORY , NONVERBAL DENIES N/V/; SKIN IS PINK/WARM/DRY; LUNGS CLEAR BL; HR EVEN AND REGULAR; PT DENIES ANY FEVER, CP, SOB, OR COUGH AT THIS TIME; PATIENT STATES PAIN OF 0/10 AT THIS TIME.PATIENT POSITIONED FOR COMFORT. BED DOWN. ER MD MADE AWARE OF PT STATUS.
[2018-02-04] MEDS ORDERED: NACL 0.9% 1,000 ML IV ONE (18:04)
[2018-02-04] MEDS ORDERED: NACL 0.9% 500 ML IV SCH (18:04)
[2018-02-04] MEDS ORDERED: NACL 0.9% 1,000 ML IV SCH (18:04)
[2018-02-04] MEDS ORDERED: metroNIDAZOLE 500 MG/NS PREMIX 100 ML IV ONE (18:05)
[2018-02-04] MEDS ORDERED: ONDANSETRON 4 MG/2 ML VIAL IVP ONE (18:05)
--- NOTE | 2018-02-04 18:08 | NUR ---
Dr. Mendoza evaluating patient at bedside.
[2018-02-04] MEDS ORDERED: LEVOFLOXACIN 500 MG/D5W PREMIX 100 ML IV ONE (18:40)
--- NOTE | 2018-02-04 18:43 | NUR ---
Patient taken to CT scan via gurney by melyssa, accompanied by RN.
[2018-02-04 18:47] LABS: HEMOGLOBIN 11.7 g/dL (12.0-18.0); MEAN CORPUSCULAR HEMOGLOBIN 34 pg (27-31); MEAN CORPUSCULAR HGB CONC 33 g/dL (33-37); MEAN CORPUSCULAR VOLUME 101.9 fL (80-94); PLATELET COUNT (AUTO) 135 K/uL (140-450); RED BLOOD CELL COUNT(AUTO) 3.43 MIL/uL (4.20-6.10); RED CELL DISTRIBUTION WIDTH 12.5 % (11.6-13.7); WHITE BLOOD COUNT (AUTO) 22.5 K/uL (4.8-10.8)
[2018-02-04 18:52] LABS: APPEARANCE,URINE CLOUDY (CLEAR); BILIRUBIN,URINE NEGATIVE (NEGATIVE); BLOOD, URINE 3+ (NEGATIVE); COLOR,URINE YELLOW (YELLOW); LEUKOCYTE ESTERASE ,URINE 3+ (NEGATIVE); NITRITE, URINE POSITIVE (NEGATIVE); UGLUCOSE NEGATIVE (NEGATIVE)
[2018-02-04 18:59] LABS: ANION GAP 16.3 (8-16); CARBON DIOXIDE 21.3 mmol/L (21-32); CHLORIDE 98 mmol/L (98-107); CREATININE 2.2 mg/dL (0.7-1.3); GLUCOSE 185 mg/dL (74-106); POTASSIUM 4.6 mmol/L (3.5-5.1); SODIUM SERUM 131 mmol/L (136-145); UREA NITROGEN, BLOOD 35 mg/dL (7-18)
--- NOTE | 2018-02-04 18:59 | NUR ---
PT RETURN FROM CT
[2018-02-04 19:01] LABS: WBC,URINE TOO MANY TO COUNT /HPF (0-5)
[2018-02-04 19:02] LABS: RBC,URINE 20-50 /HPF (0-5)
[2018-02-04 19:05] LABS: ALBUMIN 2.7 g/dL (3.4-5.0); AMYLASE 63 U/L (25-115); ASPARTATE AMINOTRANSFERASE 172 U/L (15-37); LIPASE 151 U/L (73-393); MAGNESIUM 1.6 mg/dL (1.8-2.4); TOTAL BILIRUBIN 1.1 mg/dL (0.0-1.0); URIC ACID 7.6 mg/dL (2.6-7.2)
[2018-02-04] MEDS ORDERED: ZOLPIDEM 5 MG TAB PO PRN (19:05)
[2018-02-04] MEDS ORDERED: MORPHINE SULFATE 2 MG/ML SYR IVP PRN (19:05)
[2018-02-04] MEDS ORDERED: LORazepam 2 MG/ML VIAL IM/IVP PRN (19:05)
[2018-02-04] MEDS ORDERED: DOCUSATE SODIUM 100 MG GELCAP PO PRN (19:05)
[2018-02-04] MEDS ORDERED: ACETAMINOPHEN 325 MG TAB PO PRN (19:05)
[2018-02-04] MEDS ORDERED: ONDANSETRON 4 MG/2 ML VIAL IM/IVP PRN (19:05)
[2018-02-04] MEDS ORDERED: HYDROcodone/APAP 5/325 MG 1 TAB TAB PO PRN (19:05)
[2018-02-04 19:10] LABS: ACETONE, SERUM NEGATIVE (NEGATIVE)
[2018-02-04] MEDS ORDERED: ALBUTEROL SULFATE/IPRATROPIU 3 ML SOL IH PRN (19:10)
--- NOTE | 2018-02-04 19:10 | NUR ---
Pt report given to JOSE A KESSLER. Transfer of care at this time.
[2018-02-04 19:12] LABS: PROTHROMBIN TIME 9.9 secs (10.8-13.4)
--- NOTE | 2018-02-04 19:15 | NUR ---
XRAY AT BEDSIDE, AND RESIDENT AT BEDSIDE, RESIDENT MADE AWARE OF LACTIC ACID 3.0.
[2018-02-04 19:17] LABS: LYMPHOCYTES % (MANUAL) 3 % (20-46); MONOCYTES % (MANUAL) 6 % (5-12)
[2018-02-04 19:30] LABS: BARBITURATE, URINE NEG. ng/ml (NEG <=200); CANNABINOID, URINE NEG. ng/mL (NEG <=50); COCAINE, URINE NEG. ng/mL (NEG <=300); OPIATE, URINE NEG. ng/mL (NEG <=2000); PHENCYCLIDINE SCREEN,URINE NEG. ng/mL (NEG <=25)
[2018-02-04 19:37] LABS: CHOL/HDL RATIO 2.1 (1-4.5); THYROID STIMULATING HORMONE 1.04 uIU/mL (0.34-3.74)
[2018-02-04 19:40] LABS: BENZODIAZEPINE, URINE NEG. ng/mL (NEG <=200)
[2018-02-04] MEDS ORDERED: MECLIZINE 25 MG TAB PO PRN (19:40)
[2018-02-04] MEDS ORDERED: DEXTROSE 50% 50 ML SYR IVP PRN (19:40)
--- NOTE | 2018-02-04 19:40 | NUR ---
PT ARRIVED VIA GURNEY FROM ER, BEDSIDE REPORT RECEIVED FROM JOSE A KESSLER, PT STABLE, NO DISTRESS NOTED, IV TO R FA 20G RUNNING NS BOLUS, INFUSING WELL, INTACT, ANOTHER IV TO R LOWER FA 20G PATENT, INTACT, SL, PT ON ROOM AIR, NO SOB, PT APHASIC AT BASELINE, PT HAS R SIDED HEMIPLEGIA, SON AT BEDSIDE, INITIAL ASSESSMENT DONE, ALL SAFETY PRECAUTION MET, WILL CONTINUE TO MONITOR.
--- NOTE | 2018-02-04 19:49 | NUR ---
Patient will be admitted to care of DR JACOBS. Admited to TELE. Will go to room 116. Belongings list completed. Report to [facility]. SAMMIE SENT TO FLOOR TO INFUSE THERE.
[2018-02-04 20:00] VITALS: BP 114/57
--- NOTE | 2018-02-04 20:12 | NUR ---
DUE MEDICATION ADMINISTERED PT TOLERATED WELL, NO DISTRESS NOTED, CALL LIGHT WITHIN REACH, WILL CONTINUE TO MONITOR.
[2018-02-04] MEDS: NACL 0.9% 1,000 ML IV SCH (20:13)
--- NOTE | 2018-02-04 20:33 | NUR ---
DUE MEDICATION ADMINISTERED, PT TOLERATED WELL, NO DISTRESS NOTED, CALL LIGHT WITHIN REACH, WILL CONTINUE TO MONITOR.
--- NOTE | 2018-02-04 20:50 | NUR ---
ACCOMPANIED PT TO CT, FOR HEAD CT, PT STABLE, NO DISTRESS NOTED, WILL CONTINUE TO MONITOR. Addendum: 02/04/18 at 2226 by Veronica Guzman RN WRONG TIME
[2018-02-04] MEDS: TAMSULOSIN 0.4 MG CAP PO SCH (21:22)
[2018-02-04] MEDS: BLOOD GLUCOSE MONITORING 1 DEV DEV FS SCH (21:24)
[2018-02-04] MEDS: INSULIN LISPRO SLIDING SCALE 100 UNITS/ML VIAL SUBQ PRN (21:33)
--- NOTE | 2018-02-04 21:50 | NUR ---
ACCOMPANIED PT TO CT, FOR HEAD CT, PT STABLE, NO DISTRESS NOTED, WILL CONTINUE TO MONITOR.
[2018-02-04] MEDS ORDERED: MAG SULF 2000 MG/WATER PREMIX 50 ML IV SCH (22:00)
--- NOTE | 2018-02-04 22:05 | NUR ---
PT BACK AT UNIT FROM CT, NO DISTRESS NOTED, CALL LIGHT WITHIN REACH, WILL CONTINUE TO MONITOR.
--- NOTE | 2018-02-04 22:43 | NUR ---
UNABLE TO DO ORTHOSTATIC BLOOD PRESSURE DUE TO PT UNABLE TO STAND UP OR SIT UP, PT HAS R SIDED HEMIPLEGIA D/T PREVIOUS CVA.
--- NOTE | 2018-02-04 23:15 | NUR ---
NOTIFY DR. 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 PROMINENT EXTRA-AXIAL CSF. 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 PROVIDED WITH EXTRA COPY OF RESULT, STATED UNDERSTANDING, NO CHANGES IN ORDERS.
[2018-02-04] MEDS ORDERED: PIPERACILLIN/TAZOBACTAM 2.25 GM VIAL IV ONE (23:45)
[2018-02-05] VITALS: BP 101/57
[2018-02-05] MEDS: PIPER/TAZO 2.25GM/D5W PREMIX 50 ML IV SCH ×5 (00:21→23:54)
--- NOTE | 2018-02-05 00:21 | NUR ---
DUE MEDICATION ADMINISTERED, PT TOLERATED WELL, V/S TAKEN, WNL, PT RESTING, NO DISTRESS NOTED, CALL LIGHT WITHIN REACH, WILL CONTINUE TO MONITOR.
--- NOTE | 2018-02-05 01:45 | NUR ---
SPUTUM CUP PLACED BY BEDSIDE. PATIENT UNABLE TO COUGH AT THIS TIME NO SPUTUM UPTAINED
[2018-02-05 04:00] VITALS: BP 101/42
--- NOTE | 2018-02-05 04:10 | NUR ---
PT SLEEPING, NO DISTRESS NOTED, CALL LIGHT WITHIN REACH, WILL CONTINUE TO MONITOR.
[2018-02-05] MEDS ORDERED: PIPERACILLIN/TAZOBACTAM 2.25 GM VIAL IV ONE (05:31)
[2018-02-05] MEDS ORDERED: BISACODYL 10 MG SUPP RC SCH (05:35)
--- NOTE | 2018-02-05 05:49 | NUR ---
DUE MEDICATION ADMINISTERED, PT TOLERATED WELL, NO DISTRESS NOTED, CALL LIGHT WITHIN REACH, WILL CONITNUE TO MONITOR.
[2018-02-05] MEDS: NACL 0.9% 1,000 ML IV SCH ×2 (05:51→21:50)
[2018-02-05] MEDS ORDERED: ALBUTEROL SULFATE/IPRATROPIU 3 ML SOL IH SCH (06:00)
[2018-02-05] MEDS: BLOOD GLUCOSE MONITORING 1 DEV DEV FS SCH ×4 (06:29→21:08)
--- NOTE | 2018-02-05 07:07 | NUR ---
PATIENT ALERT. TREATMENT GIVEN WITH NO ADVERSE REACTION. PATIENT WAS INSTRUCTED AND SHOWN HOW TO PROVIDE SPUTUM BUT GAVE NO INDICATION OF UNDERSTANDING. PATIENT'S BREATH SOUNDS ARE CLEAR AND NO COUGH WAS NOTED. CUP PLACED ON BEDSIDE.
--- NOTE | 2018-02-05 07:10 | NUR ---
[employer] Notes: These medical technical writer attempted to meet with patient at bed side for a screen Patient was not awake and alert unable to verbalized his needs. parish worker then attempted to contact Patients family at but no response and voice mail not set up.
--- NOTE | 2018-02-05 07:25 | NUR ---
ENDORSED PT TO DAY SHIFT NURSE CORNELIO RN, PT STABLE, NO DISTRESS NOTED, RT AT BEDSIDE.
--- NOTE | 2018-02-05 07:26 | NUR ---
RECEIVED REPORT FROM BUILDING CODE INSPECTOR NURSE. PATIENT SITTING IN BED RECEIVING A BREATHING TREATMENT. NO DISTRESS NOTED. FLACC 0. RESPIRATIONS EVEN, UNLABORED, ON ROOM AIR. AAOX1, APHASIC, CALM, COOPERATIVE, SKIN COLOR APPROPRIATE TO ETHNICITY, WARM TO TOUCH. SKIN IS INTACT. LUNGS CTA ON ALL LOBES. IV SITE INTACT, PATENT, AND INFUSING IVF PER MD ORDERS. ABDOMEN SOFT. NO BM REPORTED DURING BUILDING CODE INSPECTOR. REVIEWED PLAN OF CARE WITH PATIENT. UNABLE TO COMPREHEND. REINFORCEMENT NEEDED. SAFETY MEASURES IN PLACE, CALL LIGHT WITHIN REACH. WILL CONTINUE TO MONITOR.
[2018-02-05 08:00] VITALS: BP 124/69
[2018-02-05] MEDS ORDERED: metFORMIN 500 MG TAB PO SCH (08:00)
[2018-02-05] MEDS ORDERED: SODIUM PHOSPHATE 118 ML ENEM RC SCH (08:00)
[2018-02-05 08:27] LABS: HEMATOCRIT 34.3 % (36-52); HEMOGLOBIN 11.5 g/dL (12.0-18.0); MEAN CORPUSCULAR HEMOGLOBIN 34 pg (27-31); MEAN CORPUSCULAR HGB CONC 33 g/dL (33-37); MEAN CORPUSCULAR VOLUME 101.8 fL (80-94); PLATELET COUNT (AUTO) 130 K/uL (140-450); RED BLOOD CELL COUNT(AUTO) 3.37 MIL/uL (4.20-6.10); RED CELL DISTRIBUTION WIDTH 12.6 % (11.6-13.7); WHITE BLOOD COUNT (AUTO) 19.9 K/uL (4.8-10.8)
[2018-02-05 08:46] LABS: ANION GAP 11.6 (8-16); CARBON DIOXIDE 22.3 mmol/L (21-32); CHLORIDE 106 mmol/L (98-107); CREATININE 1.7 mg/dL (0.7-1.3); GLUCOSE 81 mg/dL (74-106); POTASSIUM 4.9 mmol/L (3.5-5.1); SODIUM SERUM 135 mmol/L (136-145); UREA NITROGEN, BLOOD 28 mg/dL (7-18)
[2018-02-05] MEDS: CLOPIDOGREL 75 MG TAB PO SCH (08:47)
[2018-02-05] MEDS: LEVOTHYROXINE 0.05 MG TAB PO SCH (08:47)
[2018-02-05] MEDS: LACTOBACILLUS RHAMNOSUS GG 1 EACH CAP PO SCH (08:47)
[2018-02-05] MEDS: FERROUS GLUCONATE 324 MG TAB PO SCH (08:47)
[2018-02-05 08:49] LABS: MAGNESIUM 2.4 mg/dL (1.8-2.4)
[2018-02-05 08:51] LABS: LYMPHOCYTES % (MANUAL) 10 % (20-46); MONOCYTES % (MANUAL) 7 % (5-12)
--- NOTE | 2018-02-05 08:53 | NUR ---
PATIENT SITTING IN BED, FAMILY MEMBER AT BEDSIDE. NO DISTRESS NOTED. SCHEDULED MEDICATIONS DUE GIVEN. SAFETY MEASURES IN PLACE, CALL LIGHT WITHIN REACH. WILL CONTINUE TO MONITOR.
[2018-02-05 08:59] LABS: PHOSPHORUS 2.3 mg/dL (2.5-4.9)
--- NOTE | 2018-02-05 09:09 | NUR ---
PATIENT HAS BEEN SCREENED AND CATEGORIZED HIGH NUTRITION RISK. PATIENT WILL BE SEEN WITHIN 1-2 DAYS OF ADMISSION. 02/05/18 02/06/[address]
[2018-02-05] MEDS ORDERED: SODIUM PHOS / POTASSIUM PHOS 1 PKT PDR PO SCH (11:00)
[2018-02-05 12:00] VITALS: BP 122/64
--- NOTE | 2018-02-05 12:00 | NUR ---
MOTOR ROUTE CARRIER ASSISTING PATIENT WITH LUNCH FEEDING. NO DISTRESS NOTED. CONDITION UNCHANGED. WILL CONTINUE TO MONITOR.
[2018-02-05] MEDS: ALBUTEROL SULFATE/IPRATROPIU 3 ML SOL IH SCH ×2 (13:16→19:37)
--- NOTE | 2018-02-05 14:30 | NUR ---
PATIENT LYING DOWN IN BED SLEEPING, AROUSABLE BY VOICE. NO DISTRESS NOTED. CONDITION UNCHANGED. WILL CONTINUE TO MONITOR.
[2018-02-05 16:00] VITALS: BP 122/64
--- NOTE | 2018-02-05 16:15 | NUR ---
PATIENT LYING IN BED SLEEPING, AROUSABLE BY VOICE. NO DISTRESS NOTED. FLACC 0. CONDITION UNCHANGED. WILL CONTINUE TO MONITOR.
--- NOTE | 2018-02-05 18:20 | NUR ---
PATIENT SITTING IN BED COMFORTABLY. NO DISTRESS NOTED. FLACC 0. SCHEDULED MEDICATION DUE GIVEN. SAFETY MEASURES IN PLACE, CALL LIGHT WITHIN REACH. WILL CONTINUE TO MONITOR.
--- NOTE | 2018-02-05 19:36 | NUR ---
GAVE REPORT TO RECORDS ANALYST NURSE FOR CONTINUITY OF CARE. PATIENT IN STABLE CONDITION.
--- NOTE | 2018-02-05 19:37 | NUR ---
REPORT RECEIVED FROM AM NURSE AT BEDSIDE. PT IN STABLE CONDITION. AAOX1. BOARD UPDATED. PT IS APHASIC. PT HAS CHICAS. IV SITE LEFT FA 20G RUNNING NS@60ML/HR PATENT AND INTACT. SKIN WARM, DRY, AND INTACT WITH NO OPEN WOUNDS. RIGHT HAND CONTRACTURES. RIGHT RADHA CVA. NO COMPLAINTS OF PAIN. NO FEVER. BED LOCKED IN LOW POSITION. CALL RODRIGUES WITHIN REACH. SAFETY MEASURES IN PLACE.
--- NOTE | 2018-02-05 19:37 | NUR ---
SPECIMEN CUP ON PATIENT TABLE FOR SPUTUM SAMPLE PATIENT UNABLE TO PRODUCE AT THIS TIME
[2018-02-05 20:00] VITALS: BP 123/69
[2018-02-05] MEDS: TAMSULOSIN 0.4 MG CAP PO SCH (20:05)
--- NOTE | 2018-02-05 20:05 | NUR ---
FLOMAX PO GIVEN TO PT. PT TOLERATED WELL.
[2018-02-05] MEDS: INSULIN LISPRO SLIDING SCALE 100 UNITS/ML VIAL SUBQ PRN (21:29)
--- NOTE | 2018-02-05 21:29 | NUR ---
BS 163. 2 UNITS OF HUMALOG GIVEN SUBQ LEFT UPPER ARM. PT TOLERATED WELL.
--- NOTE | 2018-02-05 23:54 | NUR ---
ROYA HUNG AND RUNNING. PT TOLERATING WELL.
[2018-02-06] VITALS: BP 128/72
--- NOTE | 2018-02-06 03:10 | NUR ---
PT SLEEPING COMFORTABLY. NO S/S OF DISTRESS NOTED. NO COMPLAINTS OF PAIN. NO SOB. RESPIRATIONS EVEN, UNLABORED, AND WNL.
[2018-02-06 04:00] VITALS: BP 115/66
[2018-02-06] MEDS: BLOOD GLUCOSE MONITORING 1 DEV DEV FS SCH ×4 (05:18→21:00)
[2018-02-06] MEDS: PIPER/TAZO 2.25GM/D5W PREMIX 50 ML IV SCH ×4 (05:19→23:37)
--- NOTE | 2018-02-06 05:19 | NUR ---
ROYA SIM AND RUNNING. PT TOLERATING WELL. Addendum: 02/06/18 at 0528 by Loc Reed RN BS 80. NO INSULIN COVERAGE NEEDED.
[2018-02-06] MEDS: LEVOTHYROXINE 0.05 MG TAB PO SCH (06:30)
--- NOTE | 2018-02-06 06:30 | NUR ---
SYNTHROID PO GIVEN TO PT. PT TOLERATED WELL.
[2018-02-06 07:02] LABS: BASOPHILS % (AUTO) 0.3 % (0.0-2.0); EOSINOPHILS # (AUTO) 0.1 K/uL (0-0.4); EOSINOPHILS % (AUTO) 0.9 % (0.0-4.0); HEMATOCRIT 36.1 % (36-52); HEMOGLOBIN 12.3 g/dL (12.0-18.0); LYMPHOCYTES # (AUTO) 0.5 K/uL (2.0-11.5); LYMPHOCYTES % (AUTO) 5.1 % (20.5-51.1); MEAN CORPUSCULAR HEMOGLOBIN 34 pg (27-31); MEAN CORPUSCULAR HGB CONC 34 g/dL (33-37); MEAN CORPUSCULAR VOLUME 100.5 fL (80-94); MONOCYTES # (AUTO) 0.6 K/uL (0.8-1.0); NEUTROPHILS # (AUTO) 8.2 K/uL (1.8-7.7); NEUTROPHILS % (AUTO) 87.7 % (42.2-75.2); PLATELET COUNT (AUTO) 128 K/uL (140-450); RED CELL DISTRIBUTION WIDTH 12.7 % (11.6-13.7); WHITE BLOOD COUNT (AUTO) 9.4 K/uL (4.8-10.8)
--- NOTE | 2018-02-06 07:15 | NUR ---
REPORT GIVEN TO AM NURSE AT BEDSIDE. PT IN STABLE CONDITION.
[2018-02-06 07:22] LABS: ANION GAP 11.3 (8-16); CARBON DIOXIDE 22.3 mmol/L (21-32); CHLORIDE 106 mmol/L (98-107); CREATININE 1.7 mg/dL (0.7-1.3); GLUCOSE 87 mg/dL (74-106); POTASSIUM 4.6 mmol/L (3.5-5.1); SODIUM SERUM 135 mmol/L (136-145); UREA NITROGEN, BLOOD 21 mg/dL (7-18)
[2018-02-06 07:29] LABS: PHOSPHORUS 3.3 mg/dL (2.5-4.9)
[2018-02-06] MEDS: ALBUTEROL SULFATE/IPRATROPIU 3 ML SOL IH SCH ×3 (07:37→19:17)
[2018-02-06 08:00] VITALS: BP 131/71
[2018-02-06] MEDS: CLOPIDOGREL 75 MG TAB PO SCH (09:22)
[2018-02-06] MEDS: LACTOBACILLUS RHAMNOSUS GG 1 EACH CAP PO SCH (09:23)
[2018-02-06] MEDS: FERROUS GLUCONATE 324 MG TAB PO SCH (09:23)
--- NOTE | 2018-02-06 09:25 | NUR ---
PATIENT SITTING IN BED COMFORTABLY. NO DISTRESS NOTED. FLACC 0. SCHEDULED MEDICATIONS DUE GIVEN. SAFETY MEASURES IN PLACE, CALL LIGHT WITHIN REACH. WILL CONTINUE TO MONITOR.
[2018-02-06 12:00] VITALS: BP 123/66
[2018-02-06 12:38] LABS: FOLIC ACID 6.1 ng/mL (>3.0)
[2018-02-06] MEDS: NACL 0.9% 1,000 ML IV SCH (12:57)
--- NOTE | 2018-02-06 12:58 | NUR ---
PATIENT LYING DOWN IN BED SLEEPING, AROUSABLE BY VOICE. NO DISTRESS NOTED. SCHEDULED MEDICATIONS DUE GIVEN. WILL CONTINUE TO MONITOR.
--- NOTE | 2018-02-06 13:19 | NUR ---
PT IS EATING WITH HELP OF DOOR TO DOOR SALESMAN. NO SOB OR DISTRESS NOTED. ON ROOM AIR SPO2 98%. NO SOB OR DISTRESS NOTED. WILL CONTINUE TO MONITOR.
--- NOTE | 2018-02-06 14:05 | NUR ---
02/06/18 RD INITIAL ASSESSMENT COMPLETED PLEASE REFER TO NUTRITION ASSESSMENT UNDER CARE ACTIVITY FOR ESTIMATED NUTRITIONAL NEEDS. 1. CONTINUE MECHANICAL SOFT DIET TOLERATED 2. RECOMMEND GLUCERNA BID 3. RD TO FOLLOW-UP 3-5 DAYS, MODERATE RISK LAW L[address]ON RD
--- NOTE | 2018-02-06 15:30 | NUR ---
PATIENT LYING DOWN IN BED SLEEPING, AROUSABLE BY VOICE. NO DISTRESS NOTED. CONDITION UNCHANGED. WILL CONTINUE TO MONITOR.
[2018-02-06 16:00] VITALS: BP 131/75
--- NOTE | 2018-02-06 17:20 | NUR ---
PATIENT LYING DOWN IN BED WATCHING TV. NO DISTRESS NOTED. FLACC 0. CONDITION UNCHANGED. SCHEDULED MEDICATION DUE GIVEN. WILL CONTINUE TO MONITOR.
--- NOTE | 2018-02-06 19:25 | NUR ---
GAVE REPORT TO INDUSTRIAL RECRUITER NURSE FOR CONTINUITY OF CARE. PATIENT IN STABLE CONDITION.
--- NOTE | 2018-02-06 19:26 | NUR ---
RECEIVED REPORT FROM DAY SHIFT NURSE CORNELIO-RN. PT RESTING IN BED, AOX1-APHASIC AND EGYPTIAN SPEAKING, ON ROOM AIR. IV SITE LEFT FA 22G RUNNING IVF, LEFT WRIST #20G ON SALINE LOCK. RIGHT HAND CONTRACTURES. CHICAS CATHETER IN PLACE. RT-KIYA IN ROOM GIVING BREATHING TREATMENT. NO S/S OF RESPIRATORY DISTRESS OR DISCOMFORT NOTED AT THIS TIME. DISCUSSED PLAN OF CARE HOWEVER PT DID NOT VERBALIZE UNDERSTANDING. BED IN LOWEST POSITION, BED BREAKS ON, BOTH SIDE RAILS UP AND FALL PRECAUTIONS IN PLACE. BED SIDE TABLE AND CALL LIGHT ARE WITHIN REACH. WILL CONTINUE TO MONITOR.
[2018-02-06 20:00] VITALS: BP 129/72
--- NOTE | 2018-02-06 20:00 | NUR ---
VITAL SIGNS TAKEN AND TOLERATED WELL. NO S/S OF RESPIRATORY DISTRESS OR DISCOMFORT NOTED AT THIS TIME. WILL CONTINUE TO MONITOR.
--- NOTE | 2018-02-06 20:00 | NUR ---
TEMPERATURE NOTED OF 101.0 F. COOLING MEASURES IN PLACE. NO S/S OF RESPIRATORY DISTRESS OR DISCOMFORT NOTED AT THIS TIME. WILL CONTINUE TO MONITOR.
[2018-02-06] MEDS: TAMSULOSIN 0.4 MG CAP PO SCH (20:53)
--- NOTE | 2018-02-06 20:53 | NUR ---
SCHEDULED MEDICATION FLOMAX GIVEN. TYLENOL GIVEN FOR TEMPERATURE OF 101.0 F. MEDICATIONS GIVEN IN APPLE SAUCE. WATER ALSO GIVEN. PT TOLERATED WELL. NO S/S OF RESPIRATORY DISTRESS OR DISCOMFORT NOTED AT THIS TIME. WILL CONTINUE TO MONITOR.
--- NOTE | 2018-02-06 22:00 | NUR ---
PT SLEEPING IN BED. TEMPERATURE 99.0 F. NO S/S OF RESPIRATORY DISTRESS OR DISCOMFORT NOTED AT THIS TIME. WILL CONTINUE TO MONITOR.
--- NOTE | 2018-02-06 23:00 | NUR ---
BLOOD GLUCOSE 129-NO INSULIN COVERAGE NEEDED. CHARGE NURSE DANIEL AND STEEL DIE PRESS SET UP OPERATOR CATHY AWARE OF LATE GLUCOSE CHECK DUE TO GLUCOMETERS ON UNIT NOT WORKING PROPERLY. PT TOLERATED WELL. NO S/S OF RESPIRATORY DISTRESS OR DISCOMFORT NOTED AT THIS TIME. WILL CONTINUE TO MONITOR.
--- NOTE | 2018-02-06 23:37 | NUR ---
SCHEDULED MEDICATION ZOSYN GIVEN AND TOLERATED WELL. NO S/S OF RESPIRATORY DISTRESS OR DISCOMFORT NOTED AT THIS TIME. WILL CONTINUE TO MONITOR.
[2018-02-07] VITALS: BP 118/69
--- NOTE | 2018-02-07 | NUR ---
VITAL SIGNS TAKEN AND TOLERATED WELL. NO S/S OF RESPIRATORY DISTRESS OR DISCOMFORT NOTED AT THIS TIME. WILL CONTINUE TO MONITOR.
--- NOTE | 2018-02-07 02:00 | NUR ---
PT SLEEPING IN BED. NO S/S OF RESPIRATORY DISTRESS OR DISCOMFORT NOTED AT THIS TIME. WILL CONTINUE TO MONITOR.
--- NOTE | 2018-02-07 02:00 | NUR ---
NO S/S OF RESPIRATORY DISTRESS OR DISCOMFORT NOTED AT THIS TIME. WILL CONTINUE TO MONITOR.
[2018-02-07] MEDS: NACL 0.9% 1,000 ML IV SCH ×2 (02:29→10:36)
[2018-02-07 04:00] VITALS: BP 130/91
--- NOTE | 2018-02-07 04:00 | NUR ---
VITAL SIGNS TAKEN AND TOLERATED WELL. NO S/S OF RESPIRATORY DISTRESS OR DISCOMFORT NOTED AT THIS TIME. WILL CONTINUE TO MONITOR.
[2018-02-07] MEDS: PIPER/TAZO 2.25GM/D5W PREMIX 50 ML IV SCH ×4 (05:06→23:46)
--- NOTE | 2018-02-07 05:06 | NUR ---
SCHEDULED MEDICATION ZOSYN GIVEN AND TOLERATED WELL. NO S/S OF RESPIRATORY DISTRESS OR DISCOMFORT NOTED AT THIS TIME. WILL CONTINUE TO MONITOR.
--- NOTE | 2018-02-07 06:00 | NUR ---
PT SLEEPING IN BED. NO S/S OF RESPIRATORY DISTRESS OR DISCOMFORT NOTED AT THIS TIME. WILL CONTINUE TO MONITOR.
[2018-02-07] MEDS: LEVOTHYROXINE 0.05 MG TAB PO SCH (06:40)
[2018-02-07] MEDS: ALBUTEROL SULFATE/IPRATROPIU 3 ML SOL IH SCH ×3 (06:50→19:12)
--- NOTE | 2018-02-07 06:51 | NUR ---
NURSE AT BEDSIDE WHEN ARRIVED. PATIENT FINISHED EATING APPLE SAUCE I ASSESSED. O2 98% ON RA, RESPIRATIONS OF 20, PULSE OF 75, AND CLEAR BREATH SOUNDS. PATIENT RESTING CALMLY. TREATMENT TOLERATED WELL. NO SOB NOTED.
--- NOTE | 2018-02-07 07:00 | NUR ---
BLOOD GLUCOSE 77-NO INSULIN COVERAGE. NO S/S OF RESPIRATORY DISTRESS OR DISCOMFORT NOTED AT THIS TIME. WILL CONTINUE TO MONITOR.
--- NOTE | 2018-02-07 07:09 | NUR ---
ASSUMED CONTINUITY OF CARE. NO SIGNS AND SYMPTOMS OF ACUTE DISTRESS NOTED. INITIAL ASSESSMENT DONE. RE-ORIENTED TO EVENTS AND SURROUNDINGS. HOB ELEVATED AND KEEP COMFORTABLE. FALL PRECAUTION APPLIED. CALL LIGHT WITHIN REACH.
--- NOTE | 2018-02-07 07:09 | NUR ---
ENDORSED PT CARE TO DAY SHIFT NURSE MAURO FOR CONTINUITY OF CARE.
[2018-02-07] MEDS: BLOOD GLUCOSE MONITORING 1 DEV DEV FS SCH ×4 (07:13→20:00)
--- NOTE | 2018-02-07 07:26 | NUR ---
DR. JACOBS, RESIDENTS MD, AND CHARGE NURSE CAME FOR PT. MORNING ROUNDS.
[2018-02-07] MEDS: FERROUS GLUCONATE 324 MG TAB PO SCH (07:54)
[2018-02-07 07:55] LABS: BASOPHILS % (AUTO) 0.2 % (0.0-2.0); EOSINOPHILS # (AUTO) 0.1 K/uL (0-0.4); EOSINOPHILS % (AUTO) 1.2 % (0.0-4.0); HEMATOCRIT 37.5 % (36-52); HEMOGLOBIN 12.6 g/dL (12.0-18.0); LYMPHOCYTES # (AUTO) 0.7 K/uL (2.0-11.5); LYMPHOCYTES % (AUTO) 10.8 % (20.5-51.1); MEAN CORPUSCULAR HEMOGLOBIN 34 pg (27-31); MEAN CORPUSCULAR HGB CONC 34 g/dL (33-37); MEAN CORPUSCULAR VOLUME 101.2 fL (80-94); MONOCYTES # (AUTO) 0.7 K/uL (0.8-1.0); MONOCYTES % (AUTO) 11.9 % (1.7-9.3); NEUTROPHILS # (AUTO) 4.7 K/uL (1.8-7.7); NEUTROPHILS % (AUTO) 75.9 % (42.2-75.2); PLATELET COUNT (AUTO) 127 K/uL (140-450); RED BLOOD CELL COUNT(AUTO) 3.71 MIL/uL (4.20-6.10); RED CELL DISTRIBUTION WIDTH 12.7 % (11.6-13.7); WHITE BLOOD COUNT (AUTO) 6.2 K/uL (4.8-10.8)
[2018-02-07 07:59] LABS: ANION GAP 13.4 (8-16); CARBON DIOXIDE 22.1 mmol/L (21-32); CHLORIDE 106 mmol/L (98-107); CREATININE 1.7 mg/dL (0.7-1.3); GLUCOSE 79 mg/dL (74-106); POTASSIUM 4.5 mmol/L (3.5-5.1); SODIUM SERUM 137 mmol/L (136-145); UREA NITROGEN, BLOOD 20 mg/dL (7-18)
[2018-02-07 08:00] VITALS: BP 137/71
--- NOTE | 2018-02-07 08:00 | NUR ---
Patient's Plan of Care was discussed and reviewed with LIGHT AIR DEFENSE ARTILLERY CREWMEMBER: VALENTIN FRANCIS
[2018-02-07 08:05] LABS: MAGNESIUM 1.9 mg/dL (1.8-2.4); PHOSPHORUS 3.3 mg/dL (2.5-4.9)
[2018-02-07] MEDS: CLOPIDOGREL 75 MG TAB PO SCH (09:00)
[2018-02-07] MEDS: LACTOBACILLUS RHAMNOSUS GG 1 EACH CAP PO SCH (09:00)
--- NOTE | 2018-02-07 09:39 | NUR ---
Timber Feller Note: Per , he spoke with patient's son regarding home health services for iv antibiotics, he stated patient's son is in agreement with [facility] . I faxed inquiry to [facility], fax number and [facility], phone number , fax .
--- NOTE | 2018-02-07 10:04 | NUR ---
Rickshaw Driver Note: Per Director MD Smiley's order for home health services for iv antibiotics will be cancel. I called and spoke with Raven from [facility] and informed her order for home health for iv antibiotics has been cancel. I also informed Bernadette from [facility], phone number patient will no longer need iv antibiotics.
--- NOTE | 2018-02-07 10:27 | NUR ---
Brush Trimming Machine Setter Note: I was informed by Dr.Singh SAXENA order for iv antibiotics will be revised not cancel. I faxed revised MD order for antibiotics to both [facility] and [facility]. I called and spoke with Raevn from [facility] and informed her of revised MD order for home health for iv antibiotics, I faxed revised MD order. Per Raven, she will contact charge nurse Abdulkadir and inquire about picc line and discharge date. Raven is aware [facility] has been contacted and I provided her with [facility]'s phone number. I also informed Bernadette from [facility], phone number of revised MD order for iv antibiotics, I faxed new order. Per Bernadette, she will contact charge nurse Abdulkadir and inquire when patient will be discharge and is aware [facility] will be providing nursing staff, I provided Bernadette with [facility]'s phone number.
[2018-02-07 12:00] VITALS: BP 135/57
--- NOTE | 2018-02-07 12:00 | NUR ---
VITALS SIGNS STABLE. NO DISCOMFORT NOTICED. CONTINUE MONITORING.
--- NOTE | 2018-02-07 13:48 | NUR ---
INFORMED DR. ROSADO IF PT. WILL BE D/C TODAY 02/07/18, PER DR. ROSADO PT. MIGHT BE D/C TOMORROW. INFORMED CHARGE NURSE SNEHAL ZAIDI.
[2018-02-07 16:00] VITALS: BP 115/55
--- NOTE | 2018-02-07 19:05 | NUR ---
REPORT GIVEN TO [facility]. IVF INFUSING WELL. IN STABLE CONDITION.
--- NOTE | 2018-02-07 19:06 | NUR ---
RECEIVED REPORT FROM DAY SHIFT NURSE MAURO. PT RESTING IN BED, AOX1-APHASIC AND CANTONESE/MANDARIN SPEAKING, ON ROOM AIR. IV SITE LEFT FA 22G SALINE LOCK, LEFT WRIST #20G RUNNING IVF. RIGHT HAND CONTRACTURES. CHICAS CATHETER IN PLACE. NO S/S OF RESPIRATORY DISTRESS OR DISCOMFORT NOTED AT THIS TIME. DISCUSSED PLAN OF CARE HOWEVER PT DID NOT VERBALIZE UNDERSTANDING. BED IN LOWEST POSITION, BED BREAKS ON, BOTH SIDE RAILS UP AND FALL PRECAUTIONS IN PLACE. BED SIDE TABLE AND CALL LIGHT ARE WITHIN REACH. WILL CONTINUE TO MONITOR.
[2018-02-07 20:00] VITALS: BP 129/78
[2018-02-07] MEDS: TAMSULOSIN 0.4 MG CAP PO SCH (20:00)
--- NOTE | 2018-02-07 20:00 | NUR ---
BLOOD GLUCOSE 171-INSULIN COVERAGE NEEDED. VITAL SIGNS TAKEN AND TOLERATED WELL. NO S/S OF RESPIRATORY DISTRESS OR DISCOMFORT NOTED. WILL CONTINUE TO MONITOR.
[2018-02-07] MEDS: INSULIN LISPRO SLIDING SCALE 100 UNITS/ML VIAL SUBQ PRN (20:03)
--- NOTE | 2018-02-07 20:03 | NUR ---
SCHEDULED MEDICATION FLOMAX AND INSULIN COVERAGE GIVEN. PT TOLERATED WELL. NO S/S OF RESPIRATORY DISTRESS OR DISCOMFORT NOTED. WILL CONTINUE TO MONITOR.
--- NOTE | 2018-02-07 22:00 | NUR ---
PT RESTING IN BED. OBSERVED HELENA-LEI MAKER ASSISTING PT WITH REPOSITIONING TO LEFT SIDE. NO S/S OF RESPIRATORY DISTRESS OR DISCOMFORT NOTED. WILL CONTINUE TO MONITOR.
[2018-02-08] VITALS: BP 113/65
--- NOTE | 2018-02-08 | NUR ---
OBSERVED TUCKER ASSISTED PT WITH ROTATION TO RIGHT SIDE. SCHEDULED MEDICATION ZOSYN GIVEN, VITAL SIGNS TAKEN AND TOLERATED WELL. NO S/S OF RESPIRATORY DISTRESS OR DISCOMFORT NOTED AT THIS TIME. WILL CONTINUE TO MONITOR.
--- NOTE | 2018-02-08 02:00 | NUR ---
PT SLEEPING IN BED. NO S/S OF RESPIRATORY DISTRESS OR DISCOMFORT NOTED AT THIS TIME. WILL CONTINUE TO MONITOR.
[2018-02-08] MEDS: NACL 0.9% 1,000 ML IV SCH (02:51)
[2018-02-08 04:00] VITALS: BP 108/68
--- NOTE | 2018-02-08 04:00 | NUR ---
PT SLEEPING IN BED. VITAL SIGNS TAKEN AND TOLERATED WELL. NO S/S OF RESPIRATORY DISTRESS OR DISCOMFORT NOTED AT THIS TIME. WILL CONTINUE TO MONITOR.
[2018-02-08] MEDS: PIPER/TAZO 2.25GM/D5W PREMIX 50 ML IV SCH ×2 (05:00→11:03)
--- NOTE | 2018-02-08 05:00 | NUR ---
SCHEDULED MEDICATION ZOSYN GIVEN AND TOLERATED WELL. OBSERVED TACO MALIK ASSIST PT WITH ROTATION TO SUPINE. PT TOLERATED WELL. NO S/S OF RESPIRATORY DISTRESS OR DISCOMFORT NOTED AT THIS TIME. WILL CONTINUE TO MONITOR.
--- NOTE | 2018-02-08 05:00 | NUR ---
BLOOD GLUCOSE 74-NO INSULIN COVERAGE NEEDED.
[2018-02-08] MEDS: BLOOD GLUCOSE MONITORING 1 DEV DEV FS SCH ×2 (06:24→11:40)
[2018-02-08] MEDS: LEVOTHYROXINE 0.05 MG TAB PO SCH (06:30)
--- NOTE | 2018-02-08 06:30 | NUR ---
SCHEDULED MEDICATION SYNTHROID GIVEN AND TOLERATED WELL IN APPLE SAUCE. NO S/S OF RESPIRATORY DISTRESS OR DISCOMFORT NOTED AT THIS TIME. WILL CONTINUE TO MONITOR.
--- NOTE | 2018-02-08 07:01 | NUR ---
ENDORSED PT CARE TO DAY SHIFT NURSE MAURO FOR CONTINUITY OF CARE.
[2018-02-08 07:33] LABS: BASOPHILS % (AUTO) 0.2 % (0.0-2.0); EOSINOPHILS # (AUTO) 0.1 K/uL (0-0.4); EOSINOPHILS % (AUTO) 2.5 % (0.0-4.0); HEMATOCRIT 38.1 % (36-52); HEMOGLOBIN 12.9 g/dL (12.0-18.0); LYMPHOCYTES % (AUTO) 19.5 % (20.5-51.1); MEAN CORPUSCULAR HEMOGLOBIN 34 pg (27-31); MEAN CORPUSCULAR HGB CONC 34 g/dL (33-37); MEAN CORPUSCULAR VOLUME 101.1 fL (80-94); MONOCYTES # (AUTO) 0.7 K/uL (0.8-1.0); NEUTROPHILS # (AUTO) 3.2 K/uL (1.8-7.7); NEUTROPHILS % (AUTO) 63.8 % (42.2-75.2); PLATELET COUNT (AUTO) 123 K/uL (140-450); RED BLOOD CELL COUNT(AUTO) 3.77 MIL/uL (4.20-6.10); RED CELL DISTRIBUTION WIDTH 12.8 % (11.6-13.7)
[2018-02-08] MEDS: ALBUTEROL SULFATE/IPRATROPIU 3 ML SOL IH SCH ×2 (07:39→13:51)
[2018-02-08 07:56] LABS: ANION GAP 14.4 (8-16); CHLORIDE 105 mmol/L (98-107); CREATININE 1.6 mg/dL (0.7-1.3); GLUCOSE 103 mg/dL (74-106); POTASSIUM 4.4 mmol/L (3.5-5.1); SODIUM SERUM 136 mmol/L (136-145); UREA NITROGEN, BLOOD 17 mg/dL (7-18)
[2018-02-08 08:00] VITALS: BP 124/73
--- NOTE | 2018-02-08 08:00 | NUR ---
Patient's Plan of Care was discussed and reviewed with PLASTER APPLICATOR: VIET FRANCIS
[2018-02-08] MEDS: FERROUS GLUCONATE 324 MG TAB PO SCH (08:57)
[2018-02-08] MEDS: CLOPIDOGREL 75 MG TAB PO SCH (09:11)
[2018-02-08] MEDS: LACTOBACILLUS RHAMNOSUS GG 1 EACH CAP PO SCH (09:11)
[2018-02-08] MEDS ORDERED: AZIT250T3 PO (11:10)
[2018-02-08] MEDS ORDERED: METR250T2 PO (11:10)
[2018-02-08] MEDS: INSULIN LISPRO SLIDING SCALE 100 UNITS/ML VIAL SUBQ PRN (11:42)
[2018-02-08 12:00] VITALS: BP 119/68
--- NOTE | 2018-02-08 13:10 | NUR ---
CALLED PTElyse ZAMUDIO AND INFORMED OF PT. DC ORDER. PER PTElyse ZAMUDIO, HE WILL COME TO GATE CLERK PT. BETWEEN 1500 TO 1600. INFORMED CHARGE NURSE AND DR. ROSADO.
--- NOTE | 2018-02-08 15:15 | NUR ---
EXPLAINED TO PT. MISTI ZAMUDIO ABOUT MD D/C ORDER, D/C INSTRUCTIONS AND TEACHING, MD FOLLOW-UP, MD D/C PRESCRIPTION LIST EDUCATION, DIET, DISEASE MANAGEMENT TEACHING, PAIN MANAGEMENT TEACHING. PT. MISTI ZAMUDIO VERBALIZED UNDERSTANDING.
--- NOTE | 2018-02-08 15:35 | NUR ---
D/C HOME VIA WHEELCHAIR ACCOMPANIED BY PTElyse GARZA IN STABLE CONDITION. INFORMED CHARGE NURSE ALISA ZAIDI.
--- NOTE | 2018-02-08 16:50 | NUR ---
Silk Folder Note: Note for earlier today: Per Raven from [facility] [phone],they will send a nurse to patient's home tomorrow 02/09/18.
== END 2018-02-08 15:35 | disposition home health service (06) | DRG 871 ==
LOC: MED 17:54 → MTU 19:05
PROVIDERS: ADMIT General Practice; ATTEND General Practice
DX: A41.9 Sepsis, unspecified organism (principal); G93.41 Metabolic encephalopathy; J69.0 Pneumonitis due to inhalation of food and vomit; N17.0 Acute kidney failure with tubular necrosis; E43 Unspecified severe protein-calorie malnutrition; N39.0 Urinary tract infection, site not specified; E87.1 Hypo-osmolality and hyponatremia; I69.351 Hemiplegia and hemiparesis following cerebral infarction affecting right dominant side; Z66 Do not resuscitate; E83.42 Hypomagnesemia; D53.9 Nutritional anemia, unspecified; E83.39 Other disorders of phosphorus metabolism; E11.9 Type 2 diabetes mellitus without complications; E86.0 Dehydration; D69.6 Thrombocytopenia, unspecified; R65.20 Severe sepsis without septic shock; E11.51 Type 2 diabetes mellitus with diabetic peripheral angiopathy without gangrene; E03.9 Hypothyroidism, unspecified; Z79.84 Long term (current) use of oral hypoglycemic drugs; E79.0 Hyperuricemia without signs of inflammatory arthritis and tophaceous disease; I10 Essential (primary) hypertension; N40.0 Benign prostatic hyperplasia without lower urinary tract symptoms; K56.41 Fecal impaction; Z68.22 Body mass index [BMI] 22.0-22.9, adult; Z79.02 Long term (current) use of antithrombotics/antiplatelets; Z79.899 Other long term (current) drug therapy; Z74.01 Bed confinement status; Z79.4 Long term (current) use of insulin; B96.20 Unspecified Escherichia coli [E. coli] as the cause of diseases classified elsewhere
CPT/HCPCS: 36415; 70450; 71045; 74018; 80048; 80053; 80305; 81001; 82009; 82150; 82607; 82728; 82746; 82948; 83036; 83540; 83605; 83690; 83735; 84100; 84134; 84443; 84484; 84550; 85025; 85045; 85610; 85730; 87040; 87081; 87086; 87186; 93005; 93880; 93925; 93970; 94640; 96365; 96375; 99285; J1815; J1956; J2405; J2543; J3475; J3490; J7030; J7060; J7620; Q0092